=== PATIENT | male | born 1990 | race Caucasian/White ===

== ENCOUNTER 2024-06-18 09:19 | Emergency (ER) | payer SELFPAY ==
[~2024-06-18] VITALS: Ht 200.7 cm; Wt 133.0 kg
[2024-06-18 09:29] VITALS: BP 121/68
[2024-06-18] MEDS ORDERED: Diph, Acellular Pertussis, Tet 0.5 ML/VIAL (Tdap) SDV IM ONE (09:30)
[2024-06-18] MEDS ORDERED: LIDOcaine HCl 1% (Local Anesth.) 20 ML VIAL STI STA (09:30)
[2024-06-18] MEDS ORDERED: POVIDONE IODINE 0.5 OZ/BTL TOP ONE (09:30)
[2024-06-18 09:31] VITALS: BP 99/57
[2024-06-18] MEDS ORDERED: MORPHINE SULFATE 4 MG/ML VIAL IM ONE (09:35)
[2024-06-18] MEDS ORDERED: ONDANSETRON 4 MG/TAB ODT PO ONE (09:40)
[2024-06-18 09:46] VITALS: BP 112/57
[2024-06-18 11:14] VITALS: BP 112/57
[2024-06-18] MEDS ORDERED: LORTAB 5/3255 MG PO ×2 (11:16→12:01)
[2024-06-18] MEDS ORDERED: MOTRIN400 MG/TAB PO ×2 (11:16→12:01)
[2024-06-18] MEDS ORDERED: CEPHALEXIN500 M1 PO ×2 (11:16→12:01)
== END 2024-06-18 11:32 | disposition home or self-care (01) | DRG 563 ==
LOC: ED 09:19
PROC: 0PSVXZZ Reposition Left Finger Phalanx, External Approach (ICD-10-PCS; principal; 2024-06-18)
DX: S62.613B Displaced fracture of proximal phalanx of left middle finger, initial encounter for open fracture (principal); W55.29XA Other contact with cow, initial encounter; Y92.89 Other specified places as the place of occurrence of the external cause; Y99.0 Civilian activity done for income or pay
CPT/HCPCS: J0690